=== PATIENT | male | born 1970 | race Caucasian/White ===

== ENCOUNTER 2019-01-18 11:13 | Emergency (ER) | payer MEDICAID, OTHER ==
[~2019-01-18] VITALS: Ht 172.7 cm; Wt 86.0 kg
[~2019-01-18 11:13] MED LIST: DICL75TA28 PO; OMEP20TA5 PO
[2019-01-18] MEDS ORDERED: orphenadrine citrate 60mg/2ml inj. IM ONE (11:50)
[2019-01-18] MEDS ORDERED: HYDROcodone/acetaminophen 5mg/325mg tablet PO ONE (11:50)
[2019-01-18] MEDS ORDERED: LIDOcaine 5% patch TP ONE (11:50)
[2019-01-18] MEDS ORDERED: acetaminophen 325mg tablet PO ONE (11:50)
[2019-01-18] MEDS ORDERED: ondansetron 4mg rapidly disintigrating tab PO ONE (11:50)
[2019-01-18] MEDS ORDERED: ketorolac trometh inj. 60 MG/2 ML VIAL IM ONE (11:50)
[2019-01-18] MEDS ORDERED: BUPIVAcaine/PF 2.5mg/ml (0.25%) 10ml vial IJ ONE (11:55)
[2019-01-18] MEDS ORDERED: HYDR-3965 PO (12:18)
[2019-01-18] MEDS ORDERED: ACET-2615 PO (12:18)
[2019-01-18] MEDS ORDERED: LIDO700A32 TP (12:18)
[2019-01-18] MEDS ORDERED: NAPR220C15 PO (12:18)
[2019-01-18] MEDS ORDERED: CYCL-1 PO (12:18)
[2019-01-18 12:46] VITALS: BP 98/147
== END 2019-01-18 12:47 | disposition home or self-care (01) ==
LOC: ER 11:13
DX: M54.5 Low back pain (principal); F12.90 Cannabis use, unspecified, uncomplicated; F17.200 Nicotine dependence, unspecified, uncomplicated; Z88.1 Allergy status to other antibiotic agents; Z79.899 Other long term (current) drug therapy
CPT/HCPCS: 20552; 96372; 99284; J1885; J2360; J3490